=== PATIENT | female | born 1945 | race Caucasian/White ===

== ENCOUNTER → 2022-02-22 09:20 | Outpatient (BNVA) | payer MEDICARE, SELFPAY | PROVIDERS: Visit Provider Clinical Nurse Specialist Adult Health | DX: E66.01 Morbid (severe) obesity due to excess calories (principal); Z68.41 Body mass index [BMI] 40.0-44.9, adult; G62.9 Polyneuropathy, unspecified; N32.81 Overactive bladder; M15.9 Polyosteoarthritis, unspecified; R06.83 Snoring; Z13.820 Encounter for screening for osteoporosis; Z12.39 Encounter for other screening for malignant neoplasm of breast; Z12.11 Encounter for screening for malignant neoplasm of colon; Z00.00 Encounter for general adult medical examination without abnormal findings | CPT/HCPCS: 80053; 80061; 85025 ==

== ENCOUNTER → 2022-04-01 10:05 | Outpatient (BNVA) | payer MEDICARE, SELFPAY | PROVIDERS: Visit Provider Clinical Nurse Specialist Adult Health | DX: Z00.00 Encounter for general adult medical examination without abnormal findings (principal); E66.01 Morbid (severe) obesity due to excess calories; Z12.11 Encounter for screening for malignant neoplasm of colon | CPT/HCPCS: 80053; 80061; 85025 ==

== ENCOUNTER 2022-04-28 13:46 | Outpatient (CLI) | payer MEDICARE, SELFPAY ==
--- NOTE | 2022-04-28 13:51 | MM_ITS ---
WS: [id number] BILATERAL 3D TOMOSYNTHESIS DIGITAL SCREENING MAMMOGRAPHY WITH CAD CLINICAL INFORMATION: SCREENING HISTORY: Screening mammogram. No current complaints. COMPARISON: None. TECHNIQUE: Bilateral CC and MLO views. FINDINGS: Scattered fibroglandular densities bilaterally. Incidental tiny punctate calcifications. No suspiciou s focal mass, asymmetry, calcifications, or architectural distortion. No evidence of malignancy. MM/[id number] IMPRESSION: BI-RADS: 2-Benign FOLLOW UP: 1 Year Follow-up Recommend return to annual screening mammography.
== END 2022-04-28 13:47 | disposition home or self-care (01) ==
LOC: RAD 13:49
PROVIDERS: Visit Provider Clinical Nurse Specialist Adult Health
DX: Z12.31 Encounter for screening mammogram for malignant neoplasm of breast (principal)
CPT/HCPCS: 77063; 77067

== ENCOUNTER → 2024-01-23 10:34 | Outpatient (BNVA) | payer MEDICARE, SELFPAY | PROVIDERS: PCP Family Medicine Adult Medicine; Visit Provider Family Medicine Adult Medicine | DX: I10 Essential (primary) hypertension (principal); E78.00 Pure hypercholesterolemia, unspecified; N18.30 Chronic kidney disease, stage 3 unspecified; N39.46 Mixed incontinence; M53.87 Other specified dorsopathies, lumbosacral region; M25.551 Pain in right hip; M25.561 Pain in right knee | CPT/HCPCS: 80053; 80061; 84443; 85025 ==

== ENCOUNTER → 2024-03-22 13:56 | Outpatient (BNVA) | payer MEDICARE, SELFPAY | PROVIDERS: PCP Family Medicine Adult Medicine; Referring Provider Psychiatry & Neurology Neurology; Visit Provider Physician Assistant | DX: M16.11 Unilateral primary osteoarthritis, right hip | CPT/HCPCS: 73502; 99203 ==

== ENCOUNTER → 2024-05-16 07:00 | Outpatient (BNVA) | payer MEDICARE, SELFPAY | PROVIDERS: PCP Family Medicine Adult Medicine; Visit Provider Student in an Organized Health Care Education/Training Program | DX: M16.11 Unilateral primary osteoarthritis, right hip (principal) | CPT/HCPCS: 20610; 77002; 99213; J3301 ==

== ENCOUNTER → 2025-01-24 10:22 | Outpatient (BNVA) | payer MEDICARE, SELFPAY | PROVIDERS: PCP Family Medicine; Visit Provider Family Medicine | DX: I10 Essential (primary) hypertension (principal); E78.00 Pure hypercholesterolemia, unspecified; R73.01 Impaired fasting glucose; E66.9 Obesity, unspecified; N18.31 Chronic kidney disease, stage 3a; G89.29 Other chronic pain; M16.11 Unilateral primary osteoarthritis, right hip | CPT/HCPCS: 80053; 80061; 83036; 84443; 85025 ==

== ENCOUNTER → 2025-08-19 09:46 | Outpatient (BNVA) | payer MEDICARE, SELFPAY | PROVIDERS: PCP Family Medicine; Visit Provider Physician Assistant | DX: M16.11 Unilateral primary osteoarthritis, right hip (principal) | CPT/HCPCS: 73502; 99213 ==

== ENCOUNTER → 2025-09-12 11:12 | Outpatient (BNVA) | payer MEDICARE, SELFPAY | PROVIDERS: PCP Family Medicine; Visit Provider Student in an Organized Health Care Education/Training Program | DX: M16.11 Unilateral primary osteoarthritis, right hip (principal) | CPT/HCPCS: 20610; 77002; J3301; J9999 ==